=== PATIENT | female | born 1945 | race Two or more races ===

== ENCOUNTER 2025-01-14 05:30 | Emergency (ER) | payer MEDICARE, MEDICAID, SELFPAY ==
[2025-01-14] VITALS (26 sets, daily range): BP systolic 154–189; BP diastolic 78–109; PULSE 67–103; RESP 16–28; TEMP 36.6–38.1; O2SAT 94–100; BMI 25.0
--- NOTE | 2025-01-14 05:33 | EKG_ITS ---
[facility] Test Date: 2025-01-14 Pat Name: ARIANNE SALAZAR Department: Room: - Gender: Female Watchguard: : 1945 Requested By: ED Temporary Provider Order Number: [id number] Reading MD: ED Temporary Provider Measurements Intervals [place] Rate: 84 P: 72 CO: 164 QRS: 3 QRSD: 121 T: 1 QT: 391 QTc: 463 Interpretive Statements SINUS RHYTHM RIGHT BUNDLE BRANCH BLOCK [120+ ms QRS DURATION, UPRIGHT V1, 40+ ms S IN I/aVL/V4/V5/V6] No previous ECG available for comparison /store/S0/[id number].pdf
--- NOTE | 2025-01-14 05:39 | XR_ITS ---
Examination: AP chest single view Technique one AP portable semiupright chest single view Exam date time: January 14, 2025 0553 hours INDICATIONS: Onset shortness of breath today. FINDINGS: Prominent CHF Gegp-lw-esmbnglc pericardial contour Prominent vascular congestion including central vascular engorgement Perihilar and basilar edema IMPRESSION: Prominent CHF Bibasilar pneumonia
[2025-01-14 06:04] LABS: Basophils # (Auto) 0.1 Thou/mm3 (0.0-0.2); Basophils % (Auto) 1 % (0-2.5); Eosinophils # (Auto) 0.2 Thou/mm3 (0.0-0.5); Eosinophils % (Auto) 2 % (0-10); Hematocrit 29.7 % (36.0-46.0); Hemoglobin 9.1 g/dL (12.0-16.0); Immature Granulocytes % (Auto) 0 % (0-0); Immature Granulocytes Auto 0.03 Thou/mm3 (0.00-0.00); Lymphocytes # (Auto) 2.1 Thou/mm3 (1.0-4.8); Lymphocytes % (Auto) 19 % (10-50); Mean Corpuscular HGB Conc 30.6 g/dl (31.0-37.0); Mean Corpuscular Volume 88 fL (80-100); Monocytes # (Auto) 0.8 Thou/mm3 (0.0-0.8); Monocytes % (Auto) 7 % (0-12); Neutrophils # (Auto) 7.8 Thou/mm3 (1.8-7.7); Neutrophils % (Auto) 72 % (37-80); Nucleated Red Blood Cell % 0 /100 WBC (0); Platelet Count 423 Thou/mm3 (140-440); RDW Standard Deviation 67.1 fL (36.4-46.3); Red Blood Count 3.37 Miln/mm3 (4.00-5.20); White Blood Count 10.9 Thou/mm3 (3.6-11.0)
[2025-01-14 06:25] LABS: B-Type Natriuretic Peptide > 3280 pg/mL (0-100)
[2025-01-14 06:41] LABS: Alanine Aminotransferase 10 U/L (10-49); Albumin, Serum 3.9 gm/dL (3.4-4.8); Albumin/Globulin Ratio 1.1 (1.2-2.2); Alkaline Phosphatase 127 U/L (46-116); Anion Gap 8 (7-16); Aspartate Amino Transferase 23 U/L (0-34); BUN/Creatinine Ratio 4 Ratio (12-20); Bilirubin,Total 0.6 mg/dL (0.3-1.2); Blood Urea Nitrogen 21 mg/dL (9-23); Calcium 9.5 mg/dL (8.3-10.6); Calcium (Corrected) 9.6 mg/dL (8.5-10.1); Carbon Dioxide 30.9 mMol/L (20.0-31.0); Chloride 96 mMol/L (98-107); Creatinine (Component) 4.9 mg/dL (0.6-1.3); Estimated Creatinine Clearance 7.5 mL/min (>60); Globulin 3.4 gm/dL (2.3-3.5); Glucose 126 mg/dL (74-106); Lipase 46 U/L (12-53); Osmolality,Calculated 275 (275-295); Potassium 4.3 mMol/L (3.4-5.1); Sodium 135 mMol/L (136-145); Total Protein 7.3 gm/dL (5.7-8.2); eGFR 9 See Note
[2025-01-14 06:45] LABS: Troponin I 0.074 ng/mL (0.0-0.045)
--- NOTE | 2025-01-14 07:00 | PD.EDCHEST ---
ED Chest Pain RME/HPI General Chief Complaint: Chest Pain Stated Complaint: CHEST PAIN Time Seen by Provider: 01/14/25 06:50 Arrival date/time: 01/14/25 05:30 RME / HPI RME / HPI narrative: 79 y/o female with Hx of End stage renal disease, Dependence of renal dialysis, Arteriovenous fistula, Cardiac pacemaker, Type II DM, Hyperlipidemia, GERD, Hypothyroidism, Hypertension and rib fracture presents to ED BIB EMS from [facility] c/o 8/10 chest pain and shortness of breath x 2030 hours last night. Patient reports symptoms began as soon as she lied down to go to bed. Patient states she undergoes dialysis on Friday, Wednesdays, and Fridays. She is aware that she is due for dialysis today, and is concerned that she may not make it due to current symptoms. Patient began dialysis treatment approximately 4 years ago. Patient was seen and transferred to [facility] due to a fall in December 2024 which resulted in left 9th and 10th rib fractures. Patient denies any issues with urination. No modifying factors reported. No other concerns or complaints expressed at this time. Related Data Allergies Allergy/AdvReac Type Severity Reaction Status Date / Time No Known Allergies Allergy Verified 01/14/25 05:34 Review of Systems Review of Systems Systems Reviewed: All systems reviewed, normal except as documented Narrative Review of Systems: Gen: No fever, no chills, no weight loss EYES: No discharge, no visual changes, no pain HEENT: No ear pain, no congestion, no sore throat PULM: + shortness of breath, no cough, no congestion CV: + chest pain, no dyspnea on exertion, no palpitations GI: No nausea, no vomiting, no diarrhea, no pain, no constipation : No frequency, no urgency,? no dysuria Musc/skel: No joint pain, no back pain Skin: No rash? Psyc: No hallucinations, no depression Heme/Lymph: No easy bleeding or bruising tendencies Neuro: No weakness, no headache Past Medical History Past Medical History ENDOCRINE: Positive Diabetes Mellitus Type 2 Social History SMOKING STATUS: Never smoker ED Exam Narrative Physical exam: GEN. APPEARANCE: The patient is alert awake oriented X-3, lying down comfortably, does not look ill/toxic. Patient has good eye contact. Patient is cooperative. Speaking 3-4 word sentences VITALS: All vitals were reviewed and the pulse ox is 86% on room air which is normal according to my interpretation. HEENT: Normocephalic, atraumatic. Pupils are equal and reactive. Oral mucosa is moist. Patent Nares NECK: Supple, nontender, no thyromegaly, no meningismus, no JVD, no step offs CHEST: Symmetrical, atraumatic, and with equal expansion , Tender on palpation, old left upper chest scar, no crepitus. CARDIOVASCULAR: Heart regular rhythm no murmur or gallop rub or extra beats. LUNGS: Clear to auscultation bilaterally with symmetrical chest rise. + tachypnea or wheezing. No intercostal subcostal retraction. No rales and no rhonchi. ABDOMEN: Soft, flat, nontender to palpation, no guarding or rebound tenderness. There are no abnormal masses palpated. Active and normal bowel sounds. EXTREMITIES: Nontender. No edema. No cyanosis. Patient is able to move all 4 extremities well, with full ROM and good CSM. Right forearm fistula. SKIN: Warm and dry, no jaundice or rashes noted. MUSCULOSKELETAL: No lubar or midline bony tenderness. There is no CVA tenderness. No paraspinal muscle spasm or tenderness. NEURO: Patient is SINGH x 4, Cranial nerves II through XII grossly intact. There is no focal neurologic deficits noted. GCS is 15, PNS and EXPLOITATION ANALYST appear grossly intact. PSYCHIATRIC: Patient is in normal mood and affect, cooperative, no SI or HI or hallucinations. Course Quality Measures none Orders Category Date Time Status EKG (ED ONLY) *Do not use* NOW Care 01/14/25 05:33 Completed Hemodialysis Urgent Care 01/14/25 07:53 Active Consult to Nephrology Stat Cons 01/14/25 07:52 Ordered EKG (ED Only) Stat Exams 01/14/25 05:33 Draft XR chest 1V portable Stat Exams 01/14/25 05:39 Completed BNP [B-Type Natriuretic Peptide] Stat Lab 01/14/25 05:50 Completed CBC Stat Lab 01/14/25 05:50 Completed CMP [Comprehensive Metabolic Panel] Stat Lab 01/14/25 05:50 Completed Lipase Stat Lab 01/14/25 05:50 Completed Troponin I Stat Lab 01/14/25 05:50 Completed Epoetin Jose Inj [Procrit Inj] Med 01/14/25 08:15 Discontinued 10,000 unit SC X1 ONE Epoetin Jose-Epbx Inj [Retacrit Inj] Med 01/14/25 10:30 Discontinued 10,000 unit SC X1 ONE Furosemide Inj [Lasix Inj] Med 01/14/25 07:49 Discontinued 40 mg IVP X1 ONE Morphine Inj Med 01/14/25 07:52 Discontinued 2 mg IVP X1 ONE Ondansetron Inj [Zofran Inj] Med 01/14/25 13:44 Discontinued 4 mg IV X1 ONE Reevaluation(s) Reevaluation #1: Patient is comfortable and sleeping. Patient remains clinically stable throughout the emergency department visit. Re-assessment at the time of disposition demonstrates that the patient is in no acute distress. We reviewed all the results, analysis, and treatment plans. Patient is amenable to discharge. Strict return precautions were outlined. Patient was discharged in stable condition. Case discussed with nurse and patient is on 2LNC prn. Here she is now asymptomatic, SpO2 88-90 on RA, on 2LNC here at 97-99%. Time: 14:00 Vital Signs Vital signs: Vital Signs Temperature 98.2 F 01/14/25 05:40 Pulse Rate 84 01/14/25 05:40 Respiratory Rate 24 H 01/14/25 05:40 Blood Pressure 181/89 H 01/14/25 05:40 Pulse Oximetry (%) 95 01/14/25 05:40 Oxygen Delivery Method Nasal Cannula 01/14/25 05:40 Oxygen Flow Rate 4 01/14/25 05:40 Procedures -ED EKG Interpretation #1: Date of EK01/14/25 Time of EK:41 Rate: 84 Interpretation: Interpreted by me Additional EKG comment: Sinus rhythm, rate of 84 BPM, widened QRS wave, right bundle branch block, no STEMI. Chest Pain MDM Narrative MDM Narrative:: Tiffany Thacker am scribing for and in the presence of Dr. Duarte. Patient data External records reviewed:: EMS form and Correction records Clinical information provided by:: patient and EMS Social determinants that could affect healthcare access:: housing Patient has the following chronic illnesses:: End stage renal disease, Dependence of renal dialysis, Arteriovenous fistula, Cardiac pacemaker, Type II DM, Hyperlipidemia, GERD, Hypothyroidism, Hypertension How is presenting disease/condition affected by chronic disease/condition?: exacerbated by Evaluation data The following diagnostics were reviewed and interpreted by me:: lab results, radiology exam(s) and EKG tracing(s) Lab and/or radiology exams considered but not ordered:: None Interpretation Summary: Chest x-ray: my interpretation shows diffuse interstitial marking, cardiomegaly consistent with fluid overload, left pleural effusion, pacemaker. Patient: ARIANNE SALAZAR Record#: [id number] Birthdate: 1945 Age/Sex: 79 / F Ordering Physician: Rob Duarte MD Date of Service: 01/14/25 Procedure(s): XR chest 1V portable Accession Number(s): [id number] cc: Rob Duarte MD; Mike Phan MD~ Examination: AP chest single view Technique one AP portable semiupright chest single view Exam date time: January 14, 2025 0553 hours INDICATIONS: Onset shortness of breath today. FINDINGS: Prominent CHF Zpgr-[id number]-xogypybt pericardial contour Prominent vascular congestion including central vascular engorgement Perihilar and basilar edema IMPRESSION: Prominent CHF Bibasilar pneumonia Dictated By: Mike Phan MD Signed By: <Electronically signed by Mike Phan MD in OV> 01/14/25 0740 Medications / Prescriptions Medications or Prescriptions considered but not ordered:: None Medication administrations:: Medication Administration History Discontinued Medications Epoetin Jose (Epoetin Jose-Epbx Inj 10,000 Unit/Ml Vial (Esrd)) 10,000 unit SC X1 ONE Stop: 01/14/25 10:31 Epoetin Jose (Epoetin Jose Inj 1,000 Unit/0.05 Ml Unit) 10,000 unit SC X1 ONE Stop: 01/14/25 08:16 Last Admin: 01/14/25 11:23 Dose: 1,000 unit Documented By: MM Furosemide (Furosemide Inj 10 Mg/Ml 4ml Vial) 40 mg IVP X1 ONE Stop: 01/14/25 07:50 Last Admin: 01/14/25 07:53 Dose: 40 mg Documented By: VG Morphine Sulfate (Morphine Sulf Inj 10 Mg/Ml Vial) 2 mg IVP X1 ONE Stop: 01/14/25 07:53 Last Admin: 01/14/25 08:00 Dose: Not Given Documented By: VG Non-Admin Reason: Held for Dialysis Ondansetron HCl (Ondansetron Inj 2 Mg/Ml Inj 2 Ml) 4 mg IV X1 ONE; Protocol Stop: 01/14/25 13:45 Last Admin: 01/14/25 13:54 Dose: 4 mg Documented By: MESHA See above if any. Consultations Consultation(s) initiated? (list below): Yes Consultation #1 (Physician, Specialty, Details): Discussed test HPI, PMHx, lab, radiology results and/or management with Dr. Gallagher. Dr. Gallagher will dialyze patient. Time: 07:11 Diagnosis Chest Pain Differential Diagnosis: fracture of rib, costochondritis and chest pain Most likely diagnosis given after review of the tests above:: End stage kidney disease Acute edema of lung Admission Indicated Admission indicated?: not indicated Admission Request Was there a request for admission?: No Disposition Plan Disposition Plan: Discharge Discharge Attestation Discharge Attestation: The patient and all family members were given an opportunity to ask questions and understood the discharge instructions. Discharge instructions specifically effects, indications for sooner follow up or return to the emergency department, and the expected course of current diagnosis. Patient condition: Stable Critical Care Time Critical Care Time Critical Care Time: Yes Total Critical Care Time (min.): 35 Attestation: The high probability of sudden, clinically significant deterioration in the patient?s condition required the highest level of my preparedness to intervene urgently. The services I provided to this patient were to treat and/or prevent clinically significant deterioration. Services included the following: chart data review, reviewing nursing notes and/or old charts, documentation time, executive consultant collaboration regarding findings and treatment options, medication orders and management, direct patient care, vital sign assessments and ordering, interpreting and reviewing diagnostic studies and lab tests. Aggregate critical care time includes only time during which I was engaged in work directly related to the patient?s care, as described above, whether at bedside or elsewhere in the Emergency Department. It did not include time spent performing other reported procedures or the services of residents, students, nurses or physician assistants. Discharge Plan Plan Patient Disposition: HOME (Self Care) Prescriptions/Referrals Referrals: Isabella Shukla PA-C [Primary Care Provider] - In 1 week Problem List Clinical Impression: End stage kidney disease, Acute edema of lung Patient/Caregiver Discharge Instructions Education Materials: ED Chronic Kidney Disease (CKD) Additional Instructions: You can continue with your normal scheduled dialysis on Friday. Feel free return to the emergency department sooner symptoms worsen or if you notice any new, concerning issues. Print Language: Belarusian Stand Alone Forms: Mar[employer] Award Info., Patient Portal Info Letter
[2025-01-14] MEDS: FUROSEMIDE INJ 10 MG/ML 4ML VIAL 40 MG IVP (07:53)
--- NOTE | 2025-01-14 08:00 | PC.NURSE ---
PT TAKEN TO DIALYSIS.
[2025-01-14] MEDS: EPOETIN ALFA INJ 1,000 UNIT/0.05 ML UNIT 10000 UNIT SC (11:23)
--- NOTE | 2025-01-14 12:39 | PC.NURSE ---
PT IS BACK FROM DIALYSIS.
--- NOTE | 2025-01-14 13:37 | ESCONSULT_ITS ---
HPI Data of Consult Consult date: 01/14/25 Requesting Physician: Rob Duarte MD Primary Care Provider: Isabella Shukla PA-C Consult Narrative Reason for consult: ESRD History of present illness: A 79-year-old female with a history of end-stage renal disease, dependence on renal dialysis with Dr. Gray for 4 years, cardiac pacemaker, type 2 diabetes mellitus, hyperlipidemia, GERD, hypothyroidism, hypertension, and recent rib fractures presents to the ED via EMS from [facility]. She reports 8/10 chest pain and shortness of breath for the past day, which began when she lay down to go to bed. The patient is scheduled for dialysis today and is concerned she may miss it due to her current symptoms. She has been on dialysis for approximately 4 years. The patient was recently seen and transferred to [facility] following a fall in December 2024 that resulted in fractures of the left 9th and 10th ribs. She denies any issues with urination and has no modifying factors or additional concerns at this time. Denies headache, fever, chills, cough, palpitations, chest pain, GI or urinary symptoms. She is able to make urine, states she urinates 3-4 times daily. ED course: Afebrile, BP 181/89, HR 84, RR 24, satting 95% on 4 L NC. Hgb 9.1, MCV 88, PLT and WBC WNL. Sodium 135, chloride 96, CR 4.9, EGFR 9, GLUCOSE 126, troponin 0.074, BNP >3280. CXR showed prominent CHF and bibasilar pneumonia. EKG showed sinus rhythm without acute ST changes. On exam she is tachypneic with significant bilateral lung crackles. No lower extremity edema. Will do inpatient HD today. PMHX: As above. Meds: pending med rec Allergies: NKA SH: denies alcohol, tobacco or drug use. cc:: cc: Exam Vital Signs Temp Pulse Resp BP Pulse Ox O2 Del Method O2 Flow Rate 100.5 F H 82 20 171/91 H 99 Nasal Cannula 3 01/14/25 12:40 01/14/25 12:40 01/14/25 12:40 01/14/25 12:40 01/14/25 12:40 01/14/25 12:40 01/14/25 12:40 Narrative Exam GENERAL * Tachypneic, appears in mild distress secondary to shortness of breath. HEENT * NCAT.?MELODY. Oral mucosa is moist. Patent Nares NECK * Supple, nontender, no thyromegaly, no meningismus, no JVD, no step offs CHEST * Tachycardic, regular rate, no m/g/r * Significant bilateral crackles on exam, no wheezing. Symmetrical chest rise. No intercostal subcostal retraction * Atraumatic, nontender, no crepitus, symmetrical expansion. ABDOMEN * Soft, flat, nontender. No guarding/rebound tenderness/masses. * Bowel sounds presents EXTREMITIES * No edema/cyanosis.? SKIN * Warm and dry, no jaundice/rashes. NEUROMUSCULAR * No lumbar or midline, no CVA, no paraspinal muscle spasm or tenderness. * Moves all 4 extremities well, with full ROM and good CSM. * SINGH x4, CN II-XII grossly intact. * No focal neurologic deficits. PSYCHIATRY * Normal mood and affect, cooperative, no SI or HI or hallucinations. Results Labs 01/14/25 05:50 01/14/25 05:50 Labs: Short CBC 01/14/25 Range/Units 05:50 WBC 10.9 (3.6-11.0) Thou/mm3 Hgb 9.1 L (12.0-16.0) g/dL Hct 29.7 L (36.0-46.0) % Plt Count 423 (140-440) Thou/mm3 BMP 01/14/25 05:50 Sodium 135 L Potassium 4.3 Chloride 96 L Carbon Dioxide 30.9 BUN 21 Creatinine 4.9 H* Glucose 126 H Calcium 9.5 Cardiac Enzymes 01/14/25 Range/Units 05:50 Troponin I 0.074 H* (0.0-0.045) ng/mL Liver Function 01/14/25 Range/Units 05:50 Total Bilirubin 0.6 (0.3-1.2) mg/dL AST 23 (0-34) U/L ALT 10 (10-49) U/L Alkaline Phosphatase 127 H (46-116) U/L Albumin 3.9 (3.4-4.8) gm/dL Quality Measures Quality Measures none Advance care planning discussed with:: patient Medications Home Medications and Allergies Allergies Allergy/AdvReac Type Severity Reaction Status Date / Time No Known Allergies Allergy Verified 01/14/25 05:34 Visit Medications Discontinued Medications Epoetin Jose (Epoetin Jose-Epbx Inj 10,000 Unit/Ml Vial (Esrd)) 10,000 unit SC X1 ONE Stop: 01/14/25 10:31 Epoetin Jose (Epoetin Jose Inj 1,000 Unit/0.05 Ml Unit) 10,000 unit SC X1 ONE Stop: 01/14/25 08:16 Last Admin: 01/14/25 11:23 Dose: 1,000 unit Furosemide (Furosemide Inj 10 Mg/Ml 4ml Vial) 40 mg IVP X1 ONE Stop: 01/14/25 07:50 Last Admin: 01/14/25 07:53 Dose: 40 mg Morphine Sulfate (Morphine Sulf Inj 10 Mg/Ml Vial) 2 mg IVP X1 ONE Stop: 01/14/25 07:53 Last Admin: 01/14/25 08:00 Dose: Not Given Assessment & Plan Plan 71-year-old female with ESRD on hemodialysis with Dr. Thrasher, HTN, HLD, DM, pacemaker, GERD, and hypothyroidism presenting to the ED with shortness of breath. Found to have significant pulmonary congestion on CXR. Nephrology was consulted for inpatient dialysis. Will proceed with hemodialysis today. ESRD on hemodialysis Mild hyponatremia Fluid overload Has diabetes for greater than 14 years, has been on hemodialysis since [address] Thrasher for HD. Frequency unknown. Presenting with significant shortness of breath, found to have pulmonary congestion on CXR. Tachypneic, although satting well on 4 L. No significant extremity edema on exam. Consistent with ESRD with GFR 9 L, BUN 21, CR 4.9. BP 181/89, likely volume overload. She still produces urine, around 3?4 times daily. No previous records on file. Anticipate symptoms are improved with hemodialysis. ? Will continue with hemodialysis inpatient, plan to remove 3 L today. ? Renally dose meds, avoid overdiuresis and NEPHROTOXINS ? Daily CMP HLD T2DM Hypothyroidism HTN Previous rib fractur Elevated BNP Elevated troponin Managed by referring physician. Thank you for the opportunity to participate in the care of this patient. Patient case was discussed with attending, Dr. Gallagher. Gregorio Rosa DO PGYI Attending Provider Attestation/Addendum Patient seen and examined with resident physician Dr. Perkins. Note reviewed, agree with findings and recommendations. Patient admitted with hypoxic respiratory failure/fluid overload and is currently on 5 L oxygen. Renal consultation requested for need for emergency dialysis by ER provider. Patient currently seen on dialysis. Tolerating dialysis without any problems. Hemodialysis for 3 hours, 2K, ultrafiltration 2-3 L, Epogen 6000, no heparin ordered. Plan of care discussed with the dialysis nurse. Please see dialysis flowsheet for further details.
[2025-01-14] MEDS: ONDANSETRON INJ 2 MG/ML INJ 2 ML 4 MG IV (13:54)
--- NOTE | 2025-01-14 14:43 | PC.CC ---
Ayala ALEXANDRE was consulted by JOHANN Thompson regarding transportation for patient back to [facility]. LAWRENCEW made contact with [email or web address] who provided reservation [phone].
--- NOTE | 2025-01-14 18:41 | PC.NURSE ---
report called to Hyacinth with [facility].
== END 2025-01-14 21:24 | disposition home or self-care (01) ==
PROVIDERS: Emergency Provider Emergency Medicine; PCP Physician Assistant Medical
DX: E11.22 Type 2 diabetes mellitus with diabetic chronic kidney disease (principal); I12.0 Hypertensive chronic kidney disease with stage 5 chronic kidney disease or end stage renal disease; N18.6 End stage renal disease; Z99.2 Dependence on renal dialysis; Z95.0 Presence of cardiac pacemaker; E78.5 Hyperlipidemia, unspecified; K21.9 Gastro-esophageal reflux disease without esophagitis; E03.9 Hypothyroidism, unspecified; J81.0 Acute pulmonary edema
CPT/HCPCS: 36415; 71045; 80053; 83690; 83880; 84484; 85025; 90935; 93005; 96374; 96375; 99291; J1940; J2405; Q4081; G0257